=== PATIENT | female | born 1975 | race Native Hawaiian/Other Pacific Islander ===

== ENCOUNTER 2016-12-17 13:32 | Observation (INO) | payer OTHER ==
[~2016-12-17] VITALS: Ht 162.6 cm; Wt 161.7 kg
[~2016-12-17 13:32] MED LIST: ACID REDUCER150 M1 PO; ACTOS15 MG PO; CLARITIN10 M1 PO; CLARITIN10 MG PO; FURO20TA67 PO; LEVO0.0723 PO; MICROZIDE12.5 MG PO; MYRBETRIQ50 MG PO; NYST100016 TOP; RANI150T78 PO; RISP2TAB2 PO; TRAZ50TA36 PO; VESICARE5 MG PO; ZESTRIL40 MG PO; ZOLOFT25 MG PO
[2016-12-17 13:45] VITALS: BP 129/84; TEMP 98
[2016-12-17 17:01] LABS: SODIUM 140 mmol/L (136-145)
[2016-12-17 17:02] LABS: PLATELET COUNT 330 K/uL (152-353)
--- NOTE | 2016-12-17 19:28 | NUR ---
RECEIVED REPORT FROM LAILA GOMES RN IN ED.
--- NOTE | 2016-12-17 19:55 | NUR ---
PT ARRIVED TO ROOM 1114 AT THIS TIME VIA STRETCHER.
[2016-12-18] VITALS (7 sets, daily range): BP systolic 119–153; BP diastolic 66–96; TEMP 97.4–98.6; Ht 162.6 cm; Wt 161.7 kg
[2016-12-18 05:14] LABS: PLATELET COUNT 274 K/uL (152-353)
[2016-12-18 05:40] LABS: POTASSIUM 3.2 mmol/L (3.6-5.2); SODIUM 143 mmol/L (136-145)
[2016-12-18] MEDS ORDERED: ZIPR20CA PO (11:34)
[2016-12-18] MEDS ORDERED: FLUOXETINE40 MG PO (11:34)
[2016-12-18] MEDS ORDERED: DOCU100C10 PO (11:35)
[2016-12-18] MEDS ORDERED: CIPRO500 MG PO (11:36)
[2016-12-18] MEDS ORDERED: VALPROIC A250 MG/5 M PO (11:36)
[2016-12-19] VITALS: BP 126/75; TEMP 98.6
[2016-12-19 04:00] VITALS: BP 127/81; TEMP 97.9
[2016-12-19 06:20] LABS: POTASSIUM 3.3 mmol/L (3.6-5.2); SODIUM 143 mmol/L (136-145)
[2016-12-19 08:00] VITALS: BP 116/87; TEMP 97.8
[2016-12-19 10:36] LABS: PLATELET COUNT 249 K/uL (152-353)
[2016-12-19 12:21] VITALS: BP 112/79; TEMP 98.8
--- NOTE | 2016-12-19 14:30 | NUR ---
IV SITE D/C'D WITH TIP INTACT AND SITE CARE DONE. D/C INSTRUCTIONS GIVEN TO PT AND SHE VERBALIZES UNDERSTANDING. PT OUT VIA W/C PER PCT WITH NAD.
== END 2016-12-19 14:50 | disposition home or self-care (01) ==
LOC: ED 13:32 → MED/SURG 18:30
PROVIDERS: Emergency Medicine; Internal Medicine; ADMIT Emergency Medicine
DX: F23 Brief psychotic disorder (principal); R41.82 Altered mental status, unspecified; F71 Moderate intellectual disabilities; I10 Essential (primary) hypertension; K21.9 Gastro-esophageal reflux disease without esophagitis; E03.8 Other specified hypothyroidism; E87.6 Hypokalemia; E11.9 Type 2 diabetes mellitus without complications
CPT/HCPCS: 36415; 80053; 80307; 80320; 80329; 81000; 81025; 82948; 83690; 83735; 84443; 85027; 86318; 99220; 99283; G0378; G0479

== ENCOUNTER 2016-12-22 18:16 | Outpatient (CLI) | payer OTHER ==
[~2016-12-22 18:16] MED LIST changes: +CIPRO500 MG PO; +DOCU100C10 PO; +FLUOXETINE40 MG PO; +VALPROIC A250 MG/5 M PO; +ZIPR20CA PO
== END 2016-12-22 18:20 | disposition short-term general hospital (02) ==
LOC: AMB 18:16
DX: R41.82 Altered mental status, unspecified (principal); R53.1 Weakness
CPT/HCPCS: A0425; A0429

== ENCOUNTER 2016-12-22 18:20 | Emergency (ER) | payer OTHER ==
[~2016-12-22] VITALS: Ht 162.6 cm; Wt 161.9 kg
[2016-12-22 20:07] LABS: PLATELET COUNT 231 K/uL (152-353)
[2016-12-22 20:17] LABS: POTASSIUM 3.7 mmol/L (3.6-5.2); SODIUM 142 mmol/L (136-145)
[2016-12-25 16:04] VITALS: BP 150/90; TEMP 98.4
== END 2016-12-25 16:05 | disposition home or self-care (01) ==
LOC: ED 18:20
DX: R44.0 Auditory hallucinations (principal); F32.89 Other specified depressive episodes
CPT/HCPCS: 36415; 80053; 80307; 80320; 80329; 81000; 85027; 93005; 99285; G0479; J1885

== ENCOUNTER 2018-06-09 14:45 | Outpatient (CLI) | payer OTHER | END 2018-06-09 14:49 | disposition short-term general hospital (02) | LOC: AMB 14:45 | DX: R41.82 Altered mental status, unspecified (principal); R50.9 Fever, unspecified | CPT/HCPCS: A0425; A0427 ==

== ENCOUNTER 2018-06-09 14:51 | Inpatient (IN) | payer OTHER ==
[~2018-06-09] VITALS: Ht 157.5 cm; Wt 125.7 kg
[2018-06-09 14:55] VITALS: BP 108/48; TEMP 102.7
[2018-06-09 16:05] LABS: PLATELET COUNT 167 K/uL (152-353)
[2018-06-09 16:13] LABS: POTASSIUM 3.8 mmol/L (3.6-5.2); SODIUM 134 mmol/L (136-145)
[2018-06-09 17:02] VITALS: BP 110/78; TEMP 100.7
[2018-06-09 18:15] VITALS: BP 109/62; TEMP 98.9
[2018-06-10 05:28] VITALS: BP 135/91; TEMP 99.2
[2018-06-10 09:52] VITALS: BP 135/91; TEMP 99.2; Ht 157.5 cm; Wt 125.7 kg
[2018-06-10 12:15] VITALS: BP 130/67; TEMP 100.3
[2018-06-10 16:02] VITALS: BP 122/76; TEMP 98.8
[2018-06-10 20:00] VITALS: BP 107/50; TEMP 99.5
[2018-06-11 00:07] VITALS: BP 124/74; TEMP 98.7
[2018-06-11 04:00] VITALS: BP 118/79; TEMP 99.7
[2018-06-11 06:09] LABS: PLATELET COUNT 186 K/uL (152-353)
[2018-06-11 06:43] LABS: POTASSIUM 3.3 mmol/L (3.6-5.2)
[2018-06-11 08:05] VITALS: BP 150/66; TEMP 98.6
[2018-06-11 12:05] VITALS: BP 110/62; TEMP 98.7
[2018-06-11 16:05] VITALS: BP 120/79; TEMP 98.4
[2018-06-11 20:04] VITALS: BP 113/69; TEMP 98.6
[2018-06-12] VITALS: BP 122/75; TEMP 99.2
[2018-06-12 04:10] VITALS: BP 109/63; TEMP 98.8
[2018-06-12 05:48] LABS: PLATELET COUNT 234 K/uL (152-353)
[2018-06-12 06:24] LABS: POTASSIUM 3.5 mmol/L (3.6-5.2)
[2018-06-12 08:00] VITALS: BP 103/53; TEMP 98
== END 2018-06-12 15:35 | disposition home or self-care (01) | DRG 194 ==
LOC: ED 14:51 → MED/SURG 21:05 → ED 21:05 → MED/SURG 21:06
PROVIDERS: Emergency Medicine; ADMIT Internal Medicine
DX: J18.8 Other pneumonia, unspecified organism (principal); F20.89 Other schizophrenia; I10 Essential (primary) hypertension; E11.9 Type 2 diabetes mellitus without complications; E03.8 Other specified hypothyroidism; K21.9 Gastro-esophageal reflux disease without esophagitis; F71 Moderate intellectual disabilities; I25.10 Atherosclerotic heart disease of native coronary artery without angina pectoris
CPT/HCPCS: 36415; 80053; 81000; 82550; 82553; 82948; 83605; 84484; 85027; 85379; 87040; 87070; 87205; 87502; 93005; 94640; 94664; 94760; 96360; 96365; 96367; 96375; 99220; 99284; G0378; J0456; J0696; J3490; Q9963